=== PATIENT | female | born 1990 | race Caucasian/White ===

== ENCOUNTER 2018-06-29 13:49 | Emergency (ER) | payer MEDICAID | END 2018-06-29 14:16 | disposition home or self-care (01) | LOC: ED 14:09 | DX: Z02.9 Encounter for administrative examinations, unspecified (principal) ==

== ENCOUNTER 2019-03-20 20:17 | Emergency (ER) | payer MEDICAID ==
[~2019-03-20] VITALS: Ht 160 cm; Wt 131.6 kg
[2019-03-20 20:25] VITALS: BP 147/70
--- NOTE | 2019-03-20 20:28 | NUR ---
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 PT IS JITTERY BUT REPORTS THAT HER METH HIGH IS GONE AND SHE WANTS HELP. PT PLACED IN LOBBY.
--- NOTE | 2019-03-20 22:31 | NUR ---
NAX1
--- NOTE | 2019-03-20 22:36 | NUR ---
NAX2
--- NOTE | 2019-03-20 22:36 | NUR ---
NAX3
== END 2019-03-20 22:38 | disposition left against medical advice (07) ==
LOC: ED 22:32
DX: F10.10 Alcohol abuse, uncomplicated (principal); R00.0 Tachycardia, unspecified; Y90.9 Presence of alcohol in blood, level not specified
CPT/HCPCS: 99283

== ENCOUNTER 2019-04-17 18:21 | Emergency (ER) | payer MEDICAID ==
[~2019-04-17] VITALS: Ht 160 cm; Wt 122.5 kg
--- NOTE | 2019-04-17 19:10 | NUR ---
TO ROOM 04
[2019-04-17] MEDS ORDERED: QUET25TA5 PO (19:26)
[2019-04-17] MEDS ORDERED: FLUO10CA13 PO (19:26)
[2019-04-17] MEDS ORDERED: PROP10TA16 PO (19:26)
--- NOTE | 2019-04-17 19:26 | NUR ---
PT DRESSED IN GOWN. LAB AT BEDSIDE. PT C/O "INFECTION IN MY STOMACH. IT'S PROBABLY FROM THE PICKING. I HAVEN'T BEEN TAKING MY MEDS." PT ATTACHED TO MONITOR. PT VERY RESTLESS IN BED, REPEATEDLY ASKING FOR A SANDWICH AND PAIN MEDS. STATES RECENT METH USE BUT REFUSING TO TELL STAFF THE DATE.
[2019-04-17] MEDS ORDERED: SODIUM CHLORIDE FLUSH 10ML SYR IVF ONE (19:30)
[2019-04-17] MEDS ORDERED: CEFTRIAXONE PMX 1GM/50ML 50 ML IVPB ONE (19:30)
[2019-04-17 19:38] LABS: BASOPHILS # (AUTO) 0.04 x10^3/uL (0-0.1); BASOPHILS % (AUTO) 0 % (0-1); EOSINOPHILS # (AUTO) 0.02 x10^3/uL (0-0.4); EOSINOPHILS % (AUTO) 0 % (1-7); LYMPHOCYTES # (AUTO) 1.25 x10^3/uL (1-3.4); LYMPHOCYTES % (AUTO) 11 % (22-44); MD NO; MEAN CORPUSCULAR HEMOGLOBIN 30.1 pg (27.0-34.8); MEAN CORPUSCULAR HGB CONC 34.1 g/dL (32.4-35.8); MEAN CORPUSCULAR VOLUME 88.2 fL (80-100); MEAN PLATELET VOLUME 8.4 fL (7.4-10.4); MONOCYTES # (AUTO) 0.63 x10^3/uL (0.2-0.8); MONOCYTES % (AUTO) 6 % (2-9); NEUTROPHILS # (AUTO) 9.09 x10^3/uL (1.8-6.8); NEUTROPHILS % (AUTO) 83 % (42-75); PLATELET COUNT 232 x10^3/uL (130-400); RED BLOOD COUNT 5.33 x10^6/uL (3.82-5.3); RED CELL DISTRIBUTION WIDTH 13.2 % (9.6-15.2)
[2019-04-17 19:51] LABS: ALANINE AMINOTRANSFERASE 60 U/L (12-78); ALBUMIN 3.7 g/dL (3.4-5.0); ANION GAP 8 mmol/L (5-15); CALCIUM 9.3 mg/dL (8.5-10.1); CHLORIDE 105 mmol/L (98-107); CREATININE 0.93 mg/dL (0.55-1.02)
[2019-04-17] MEDS ORDERED: CEFTRIAXONE PMX 1GM/50ML 50 ML ONE (19:53)
[2019-04-17 19:55] LABS: ALKALINE PHOSPHATASE 84 U/L (45-117); BILIRUBIN,TOTAL 1.5 mg/dL (0.2-1.0); TOTAL PROTEIN 7.3 g/dL (6.4-8.2)
[2019-04-17 20:26] VITALS: BP 157/106
--- NOTE | 2019-04-17 20:26 | NUR ---
FIRST CONTACT WITH PT. PT RESTING IN GURNEY W/ EYES CLOSED. EVEN/REGULAR RESPIRATIONS NOTED. PT ARROUSABLE TO VOICE. UPON ARROUSAL, PT CO 'TERRIBLE PAIN'. BP/SPO2/ECG MONITORING IN PLACE. NSR ON MONITOR. NO S/S OF ABX RXN NOTED.
--- NOTE | 2019-04-17 20:52 | NUR ---
PT AMBULATED STEADILY TO BATHROOM TO PROVIDE UA. UA COLLECTED AND SENT TO LAB. PT REPORTS 10/10 R CHEST PAIN, INTERMITTENT. ERP AWARE. NO NEW ORDERS RECEIVED.
[2019-04-17 21:17] LABS: AMPHETAMINE SCREEN, URINE Positive (Negative); BARBITURATE SCREEN, URINE Negative (Negative); BENZODIAZEPINE SCREEN, URINE Negative (Negative); CANNABINOID SCREEN, URINE Negative (Negative); COCAINE SCREEN, URINE Negative (Negative); CULTURE INDICATED? YES; METHADONE SCREEN, URINE Negative (Negative); MICROSCOPIC INDICATED; OPIATE SCREEN, URINE Negative (Negative)
--- NOTE | 2019-04-17 22:01 | NUR ---
DC EDUCATION PROVIDED, PT DEMONSTRATES UNDERSTANDING. PT AMBULATED STEADILY TO DC WITH RN
== END 2019-04-17 22:03 | disposition home or self-care (01) ==
LOC: ED 20:49
DX: N30.00 Acute cystitis without hematuria (principal); L03.311 Cellulitis of abdominal wall; F41.9 Anxiety disorder, unspecified; F15.10 Other stimulant abuse, uncomplicated
CPT/HCPCS: 36415; 80053; 80307; 81001; 84703; 85025; 87086; 96365; 99283; J0696